=== PATIENT | female | born 1950 | race Two or more races ===

== ENCOUNTER 2016-12-09 15:04 | Day surgery (SDC) | payer OTHER ==
[~2016-12-09] VITALS: Ht 157.5 cm; Wt 62.5 kg
[2016-12-09] MEDS ORDERED: DIABETES MED PO (15:26)
[2016-12-09 15:33] VITALS: Ht 157.5 cm; Wt 62.5 kg
[2016-12-09 16:04] VITALS: BP 154/81; PULSE 64; RESP 16
--- NOTE | 2016-12-09 16:47 | OPPN ---
Date/Time of Note Date/Time of Note DATE: 12/09/16 TIME: 16:45 Operative Report Preoperative Diagnosis Screening Postoperative Diagnosis Colon polyps Internal hemorrhoids Operation/Procedure Performed Colonoscopy biopsy and polypectomy Surgeon see signature line lead dental assistant None Anesthesia: moderate sedation Estimated blood loss: none Transfusion Required none Specimen Colon polyps Grafts/Implants none Complications none AARON POWELL MD Dec 09, 2016 16:47
[2016-12-09] MEDS ORDERED: MIDAZOLAM 1 MG/ML 2 ML INJ ONE ×2 (17:08→17:09)
[2016-12-09] MEDS ORDERED: FENTAnyl 50 MCG/ML VIAL ONE (17:08)
[2016-12-09 17:10] VITALS: BP 133/71; RESP 16
--- NOTE | 2016-12-09 18:01 | GILP ---
DATE OF PROCEDURE: 12/09/2016 ENDOSCOPIST: Rohini Tenorio MD. PROCEDURE PERFORMED: Colonoscopy, biopsy and polypectomy. PREOPERATIVE DIAGNOSIS: Screening colonoscopy. POSTOPERATIVE DIAGNOSES: 1. Colonoscopy all the way to the cecum. 2. Flat transverse colon polyp, removed using biopsy forceps. 3. The patient had 2 sigmoid colon polyps and one of them was removed using the snare and electrocautery. The other one with the biopsy forceps. 4. Internal hemorrhoids. INDICATION: Ms. Yolanda Chaparro is a 66-year-old female patient who was noted to have positive occult blood in stool. She needed a screening colonoscopy. The procedure and possible complications were well explained to the patient. The patient understood and consented to the procedure. DESCRIPTION OF PROCEDURE: Under influence of fentanyl and Versed, the colonoscope was carefully introduced in the rectum and under direct vision, it was advanced all the way to the cecum. FINDINGS: The patient had a flat transverse colon polyp and it was removed using biopsy forceps. The patient had 2 sigmoid colon polyps and one of them was removed with the snare and electrocautery, and other one in the biopsy forceps. She had internal hemorrhoids. She tolerated the procedure very well. There was no complication from the procedure. At the end of procedure she was awake with stable vital signs, and she was discharged home in care of her family. IMPRESSION: Please see postop diagnoses. PLAN: 1. Await histopathology report. 2. Next screening colonoscopy in 5 years. Dictated By: MD KALEIGH Sorensen/tre/brooke /Document#: [id number] CC: Rohini Tenorio MD;*[facility]*
== END 2016-12-09 17:34 | disposition home or self-care (01) ==
LOC: GIL 15:04
PROVIDERS: ATTEND Internal Medicine Gastroenterology
DX: K51.40 Inflammatory polyps of colon without complications (principal); K63.5 Polyp of colon; K64.8 Other hemorrhoids
CPT/HCPCS: 45380; 82962; 88305; J2250; J3010